=== PATIENT | female | born 1970 | race African-American/Black ===

== ENCOUNTER 2021-04-09 07:39 | Emergency (ER) | payer BC, OTHER ==
[~2021-04-09] VITALS: Ht 160 cm; Wt 72.6 kg
[~2021-04-09 07:39] MED LIST: ADVIL200 M3 PO; CELEXA20 MG PO; LOESTRIN 24 FE1 EACH PO; LORTAB 5 MG/5001 TAB PO; MIRALAX17 GM PO; MOBIC15 MG PO; NORCO 5-325 TA1 EAC1 PO; NORCO 5-325 TA1 EACH PO; PEPCID20 MG PO; PERCOCET 7.5-51 EACH PO; PREVACID30 M1 PO; PROAIR HFA8.5 GM IH; VALIUM5 MG PO; ZPAK PO
[2021-04-09 08:26] LABS: HEMOGLOBIN 13.3 gm/dL (12.0-15.0); MCH 27.9 pg (26.0-34.0); MCHC 34.1 g/dL (28.0-37.0); MCV 81.8 fL (80.0-100.0); RBC 4.77 mil/uL (4.20-5.00); RDW 15.6 % (10.5-14.5); WBC 6.9 thou/uL (4.0-11.0)
[2021-04-09 08:29] LABS: CALCIUM 8.6 mg/dL (8.5-10.1); CREATININE 0.7 mg/dL (0.6-1.0)
[2021-04-09 08:35] LABS: POTASSIUM 4.2 mmol/L (3.5-5.1)
[2021-04-09 08:36] LABS: ALBUMIN 3.5 g/dL (3.4-5.0); TOTAL BILIRUBIN 0.3 mg/dL (0.2-1.0); TOTAL PROTEIN 7.5 g/dL (6.4-8.2)
[2021-04-09 11:15] LABS: URINE BILIRUBIN NEGATIVE (Negative); URINE BLOOD NEGATIVE (Negative); URINE CLARITY CLEAR; URINE COLOR YELLOW; URINE GLUCOSE-RANDOM* NEGATIVE (Negative); URINE KETONES NEGATIVE (Negative); URINE LEUKOCYTES-REFLEX NEGATIVE (Negative); URINE NITRITE-REFLEX NEGATIVE (Negative); URINE PROTEIN (DIPSTICK) NEGATIVE (Negative); URINE UROBILINOGEN 0.2 E.U./dl (0.2-1.0)
[2021-04-09] MEDS ORDERED: MECLIZINE HCL25 MG PO (11:45)
[2021-04-09 11:52] VITALS: BP 144/79
[2021-04-09] MEDS ORDERED: MECLIZINE HCL25 M1 PO (11:54)
--- NOTE | 2021-04-09 16:51 | EKG ---
[place] [address] [facility] [employer] [place] [address] ELECTROCARDIOGRAM REPORT Name: NEETU KEENAN Room #: [facility]#: [id number] Admission: 04/09/21 Attend Phys: Discharge: 04/09/21 Date of : 72 Report #: [id number] [facility] ED Test Date: 2021-04-09 Test Time: 07:56:23 Pat Name: NEETU KEENAN Department: Room: Gender: F General Dentist: NANCY : 1970 Requested By: Yesi Seymour Order Number: [id number] MD: Bryan Hines Measurements Intervals [place] Rate: 71 P: 44 KS: 146 QRS: -2 QRSD: 80 T: 4 QT: 423 QTc: 460 Interpretive Statements Sinus rhythm Q's V1-2 Compared to ECG 03/01/2020 15:01:39 Q's V1-2 Electronically Signed On 04-09-2021 16:51:07 CDT by Bryan Hines [email or web address] <ELECTRONICALLY SIGNED> By: Bryan Hines MD, [facility] 04/09/21 [id number] Bryan Hines MD, FACC /EPI
== END 2021-04-09 11:52 | disposition home or self-care (01) ==
LOC: ER 07:39
PROVIDERS: Student in an Organized Health Care Education/Training Program
DX: R42 Dizziness and giddiness (principal); Z90.710 Acquired absence of both cervix and uterus; Z79.891 Long term (current) use of opiate analgesic; Z79.899 Other long term (current) drug therapy; Z79.1 Long term (current) use of non-steroidal anti-inflammatories (NSAID)